=== PATIENT | male | born 1970 | race Caucasian/White ===

== ENCOUNTER 2024-05-26 19:03 | Emergency (ER) | payer OTHER ==
[2024-05-26 19:09] VITALS: BP 166/105
[2024-05-26] MEDS ORDERED: ATORVASTATIN CA40 MG PO (19:14)
[2024-05-26] MEDS ORDERED: DIOVAN 160MG160 MG PO (19:33)
[2024-05-26] MEDS ORDERED: AMLODIPINE BESYL5 MG PO (19:33)
[2024-05-26] MEDS ORDERED: ESCITALOPRAM20 MG PO (19:35)
[2024-05-26] MEDS ORDERED: MELOXICAM15 MG PO (19:35)
[2024-05-26] MEDS ORDERED: ZYLOPRIM100 MG PO (19:35)
[2024-05-26] MEDS ORDERED: GOOD NEIGHBOR100 M7 PO (19:36)
[2024-05-26] MEDS ORDERED: FISH OIL 1,2001 EAC3 PO (19:36)
[2024-05-26] MEDS ORDERED: LEXAPRO5 MG PO (19:36)
[2024-05-26] MEDS ORDERED: MULTIPLE VITAMI1 TA5 PO (19:37)
[2024-05-26] MEDS ORDERED: NIACIN ER1000 MG PO (19:37)
[2024-05-26] MEDS ORDERED: CEPHALEXIN500 M1 PO (20:45)
[2024-05-26] MEDS ORDERED: Cephalexin 500 MG CAP PO ONE (20:45)
== END 2024-05-26 20:55 | disposition home or self-care (01) ==
LOC: ED 19:03
DX: S60.352A Superficial foreign body of left thumb, initial encounter (principal); W29.4XXA Contact with nail gun, initial encounter